=== PATIENT | female | born 1965 | race Caucasian/White ===

== ENCOUNTER 2018-11-18 15:09 | Emergency (ER) | payer MEDICAID, OTHER ==
--- NOTE | 2018-11-18 15:42 | EDM.PDOC ---
ED HPI GENERAL MEDICAL PROBLEM - General Chief Complaint: Eye Problems Stated Complaint: EYE ISSUES Time Seen by Provider: 11/18/18 15:41 Source of Information: Reports: Patient, RN Notes Reviewed - History of Present Illness INITIAL COMMENTS - FREE TEXT/NARRATIVE: 52-year-old female had sudden onset of "flashing lights and spots" left eye about 30 minutes prior to arrival. She felt like her vision was "somewhat blurry left eye after that but states that even her right eye was very mildly blurry. She is no longer having the flashing light sensation and feels that her vision now at time of my eval was "better". No headache or eyeball discomfort. No nausea vomiting or diaphoresis. No chest pain, palpitations or difficulty breathing. No speech difficulty or focal weakness. She has never had anything of this nature in the past. She did have laser therapy left and right cornea about 7 years ago. - Related Data Allergies Allergy/AdvReac Type Severity Reaction Status Date / Time nickel Allergy Rash Verified 11/18/18 15:22 Penicillins Allergy Rash Verified 11/18/18 15:22 Home Meds: Home Meds . [No Known Home Meds] 11/18/18 [History] Past Medical History HEENT History: Reports: Other (See Below) Other HEENT History: lasik surgery 5 years ago, astigmatism - Past Surgical History GI Surgical History: Reports: Bariatric Procedure Social & Family History - Tobacco Use Smoking Status *Q: Never Smoker - Caffeine Use Caffeine Use: Reports: Other - Recreational Drug Use Recreational Drug Use: No ED ROS GENERAL - Review of Systems Review Of Systems: See Below Constitutional: Denies: Fever, Chills, Diaphoresis HEENT: Reports: Vision Change. Denies: Eye Pain, Sinus Problem Respiratory: Denies: Shortness of Breath Cardiovascular: Denies: Chest Pain GI/Abdominal: Denies: Abdominal Pain, Nausea, Vomiting Musculoskeletal: Reports: No Symptoms Skin: Reports: No Symptoms Neurological: Denies: Headache, Numbness, Tingling, Trouble Speaking, Weakness ED EXAM GENERAL W FULL EYE - Physical Exam Exam: See Below General Appearance: Alert, Anxious (Mild) Eye Exam: Bilateral Eye: PERRL Visual Acuity (R) 20/: 20 Conjunctiva & Sclera: Bilateral: Normal Appearance Cornea Exam: Bilateral: Normal Appearance Extraocular Movements: Bilateral: Intact Pupils: Normal Accommodation Pupillary Size: Bilateral: 4 mm Pupillary Reaction: Bilateral: Brisk Anterior Chamber: Bilateral: Normal Appearance Posterior Chamber: Left: Normal Funduscopic Throat/Mouth: Normal Inspection Head: Atraumatic. No: Facial Swelling Neck: Supple, Full Range of Motion Respiratory/Chest: No Respiratory Distress, Lungs Clear, Normal Breath Sounds Cardiovascular: Regular Rate, Rhythm Extremities: Normal Inspection, Normal Range of Motion Neurological: Alert, Oriented, No Motor/Sensory Deficits Skin Exam: Warm, Dry, Normal Color Course - Vital Signs Last Recorded V/S: Last Vital Signs Temp 97.1 F 11/18/18 15:18 Pulse 56 L 11/18/18 15:18 Resp 18 11/18/18 15:18 BP 133/95 H 11/18/18 15:18 Pulse Ox 98 11/18/18 15:18 - Re-Assessments/Exams Free Text/Narrative Re-Assessment/Exam: 11/18/18 17:49 Visual acuity turned out to be normal, 20/20 both eyes. Her pupils are very reactive bilaterally. She has no conjunctival injection or apparent visible abnormality of eyeball. Funduscopic exam also looks good although I have not dilated her eyes at this time. The office of her regular eye DrRamya will be open tomorrow and I have strongly suggested she do have follow-up appointment at Dr. Trammell's office tomorrow for repeat exam and to allow for more detailed funduscopic exam. Departure - Departure Time of Disposition: 16:15 Disposition: Home, Self-Care 01 Condition: Fair Clinical Impression: Vision problems - Discharge Information Referrals: Mayda Pierre MD [Primary Care Provider] - Forms: ED Department Discharge Additional Instructions: Your visual acuity at this time was excellent, I exam also checked out very well at this time. Rest your eyes as best you can this evening and tomorrow as needed. Do follow-up with Dr. Trammell or one of his clinic staff members tomorrow for a more complete eye exam. Call for appointment tomorrow morning. Return to ED if symptoms worsening in any way as discussed.
== END 2018-11-18 16:29 | disposition home or self-care (01) ==
LOC: JD.ED 15:09
DX: H53.8 Other visual disturbances (principal); Z88.0 Allergy status to penicillin
CPT/HCPCS: 99281; 99283